=== PATIENT | female | born 1950 ===

== ENCOUNTER → 2023-02-17 08:00 | Outpatient (CLI) | payer OTHER ==
[~2023-02-17] VITALS: Ht 160 cm; Wt 76.2 kg
[~2023-02-17 08:00] MED LIST: COZAAR25 MG PO; LIPITOR40 M1 PO; VITAMIN D3250 MCG; ZETIA10 MG PO
== END | disposition home or self-care (01) ==
LOC: RAD 08:00 → ADM 09:00 → CIR.AMB 02-23 07:00 → EDSTATUS 02-23 09:00
PROVIDERS: ATTEND Surgery Surgery of the Hand
DX: M67.843 Other specified disorders of tendon, right hand (principal)